=== PATIENT | female | born 1970 | race African-American/Black ===

== ENCOUNTER 2024-07-25 05:53 | Day surgery (SDC) | payer OTHER ==
[2024-07-17 16:48] VITALS: BMI 40.7
[2024-07-25] MEDS ORDERED: KETOROLAC TROMETHAMINE 60 MG/2 ML VIAL ONE (07:15)
[2024-07-25] MEDS ORDERED: BUPIVACAINE HCL/PF 2.5 MG/ML - 30 ML VIAL IJ ONE (07:15)
[2024-07-25] MEDS ORDERED: VANCOMYCIN 1,000 MG VIAL (RESTRICTED TO ID ONLY) ONE (07:15)
[2024-07-25] MEDS ORDERED: MIDAZOLAM HCL 2 MG/2 ML SINGLE DOSE VIAL ONE ×2 (07:41→08:29)
[2024-07-25] MEDS ORDERED: SUCCINYLCHOLINE CHLORIDE 200 MG/10 ML SYRINGE ONE (07:41)
[2024-07-25] MEDS ORDERED: BUPIVACAINE LIPOSOME/PF (EXPAREL) 266 MG/20 ML VIAL ONE (07:47)
[2024-07-25] MEDS ORDERED: BUPIVACAINE HCL/PF 0.5% (5MG/ML) 10 ML VIAL ONE (07:48)
[2024-07-25] MEDS ORDERED: ceFAZolin SODIUM 1 GM VIAL ONE (08:11)
[2024-07-25] MEDS ORDERED: TRANEXAMIC ACID 1000 MG/10 ML VIAL ONE (08:11)
[2024-07-25] MEDS ORDERED: PROPOFOL 20 ML ONE ×2 (08:19→09:36)
[2024-07-25] MEDS ORDERED: MAGNESIUM HYDROX 2400MG/30ML ORAL SUSPENSION 30 ML CUP PO PRN (12:04)
[2024-07-25] MEDS ORDERED: MAG HYDROX/AL HYDROX/SIMETH 30 ML UNIT-DOSE CUP PO PRN (12:04)
[2024-07-25] MEDS ORDERED: ONDANSETRON 4 MG/2 ML VIAL IVPUSH PRN ×2 (12:04→14:40)
[2024-07-25] MEDS ORDERED: FENTANYL CITRATE/PF 50 MCG/ML VIAL ONE ×2 (12:33→14:55)
[2024-07-25] MEDS: ACETAMINOPHEN 1000 MG/100 ML BAG IVPB SCH (12:46)
[2024-07-25] MEDS ORDERED: HYDROmorphone HCL/PF 1 MG/ML VIAL ONE (14:16)
[2024-07-25] MEDS: HYDROmorphone HCl 2 MG/ML VIAL IVPUSH ONE ×2 (14:21→19:20)
[2024-07-25] MEDS: LACTATED RINGERS SOLUTION 1,000 ML IV SCH ×2 (14:40→19:19)
[2024-07-25] MEDS: KETOROLAC TROMETHAMINE 30 MG/1 ML VIAL IVPUSH PRN (15:49)
[2024-07-25] MEDS: CEFAZOLIN SODIUM 2 GM in DEXTROSE 5%-WATER 100 ML IVPB SCH (17:42)
[2024-07-25] MEDS: SENNOSIDES/DOCUSATE COMBO (SENNA PLUS) TABLET (UD) PO SCH (21:21)
[2024-07-25] MEDS: ASPIRIN 81 MG CHEWABLE TABLETS PO SCH (21:21)
[2024-07-25] MEDS: oxyCODONE HCL 5 MG TABLET PO PRN (23:34)
[2024-07-26] MEDS: LEVOTHYROXINE NA 125 MCG TABLET (FP) PO SCH (06:15)
[2024-07-26 08:13] LABS: HEMATOCRIT 27.8 % (32.4-45.2); HEMOGLOBIN 8.8 G/dL (10.7-15.3); MCHC 31.5 g/dl (32.0-36.0); MEAN CELL VOLUME 85.5 fl (80-96); MEAN PLT VOLUME 8.9 fl (7.5-11.1); PLATELET COUNT 232.7 10^3/uL (134-434); RBC 3.25 10^6/uL (3.60-5.2); RDW 15.9 % (11.6-15.6); WHITE BLOOD COUNT 9.1 10^3/uL (4.0-10.8)
[2024-07-26 08:48] LABS: CALCIUM 9.2 mg/dl (8.5-10.1); CREATININE 0.8 mg/dl (0.6-1.3); POTASSIUM 4.2 mmol/L (3.5-5.1)
[2024-07-26] MEDS ORDERED: ASPIRIN 81 MG CHEWABLE TABLETS PO SCH (10:00)
[2024-07-26] MEDS: SODIUM CHLORIDE 500 ML IV STA (11:27)
[2024-07-26] MEDS: LOSARTAN POTASSIUM 50 MG TABLET PO SCH (12:20)
[2024-07-26] MEDS: PANTOPRAZOLE 40 MG TABLET PO SCH (12:20)
[2024-07-26] MEDS: oxyCODONE HCL 5 MG TABLET PO PRN (12:21)
[2024-07-26] MEDS: HYDROCHLOROTHIAZIDE 12.5 MG CAPSULE (FP) PO SCH (12:45)
[2024-07-26] MEDS: ACETAMINOPHEN 500 MG TABLET (FP) PO SCH (14:09)
[2024-07-27 07:07] VITALS: RESP 17
[2024-07-27 09:08] LABS: HEMATOCRIT 27.1 % (32.4-45.2); HEMOGLOBIN 8.5 G/dL (10.7-15.3); MCH 26.7 pg (25.7-33.7); MCHC 31.2 g/dl (32.0-36.0); MEAN CELL VOLUME 85.8 fl (80-96); MEAN PLT VOLUME 9.4 fl (7.5-11.1); PLATELET COUNT 228.6 10^3/uL (134-434); RBC 3.16 10^6/uL (3.60-5.2); RDW 16.6 % (11.6-15.6); WHITE BLOOD COUNT 10.5 10^3/uL (4.0-10.8)
[2024-07-27 12:40] VITALS: BP 122/71; PULSE 87; TEMP 99.1
== END 2024-07-27 12:48 | disposition home or self-care (01) ==
LOC: FASU 05:53 → FASUSAT 05:53 → FM/S 14:59 → FASUSAT 07-27 12:48
PROC: 0SRC0J9 Replacement of Right Knee Joint with Synthetic Substitute, Cemented, Open Approach (ICD-10-PCS; principal; 2024-07-25 08:40)
DX: M17.11 Unilateral primary osteoarthritis, right knee (principal)
CPT/HCPCS: 20985; 27447; C1776; S2900; 36415; 73560-TC-RT-FY; 80048; 85027; 94760; 97010-GP; 97116-GP; 97162-GP; C1889; J0131